=== PATIENT | male | born 1935 ===

== ENCOUNTER 2021-10-16 07:32 | Inpatient (IN) ==
[2021-10-16] MEDS ORDERED: SODIUM CHLORIDE 0.9% 1,000 ML IV STA (07:51)
[2021-10-16] MEDS ORDERED: SODIUM CHLORIDE 0.9% 2,750 ML IV ONE (07:53)
[2021-10-16] MEDS ORDERED: ACETAMINOPHEN 500 MG TABLET PO STA (07:53)
[2021-10-16] MEDS ORDERED: ACETAMINOPHEN 500 MG TABLET ONE (07:53)
[2021-10-16 08:01] LABS: Basophils % 0.2 % (0.0-0.8); Eosinophils # 0.1 10*3/uL (0.0-0.87); Eosinophils % 0.7 % (0.00-10.9); Hematocrit 34.1 VOL% (42.0-52.0); Hemoglobin 10.6 GM/DL (14.0-18.0); Immature Granulocytes % 0.6 %; Immature Granulocytes Absolute 0.07 #; Lymphocytes # 1.2 10*3/uL (1.4-4.0); Mean Corpuscular HGB Conc 31.1 GM/DL (32-36); Mean Corpuscular Volume 91.4 FL (87-102); Mean Platelet Volume 9.3 FL (9.6-12.0); Monocytes # 0.6 10*3/uL (0.11-0.8); Neutrophils % 83.5 % (38.7-73.9); Platelet Count 221 T/CUMM (130-400); Red Blood Count 3.73 MC/CUMM (3.8-5.5); Red Cell Distribution Width 14.6 % (9.3-17.3); White Blood Count 12.1 T/CUMM (4-12)
[2021-10-16 08:10] LABS: Bilirubin,Urine Negative (Negative); Blood, Urine Trace mg/dL (Negative); Glucose,Urine (UA) Negative (Negative); INR 1.1; Ketones,Urine Negative (Negative); Nitrite,Urine Negative (Negative); PT Patient Result 11.6 SECS (10.5-12.0); Partial Thromboplastin Time 24.2 SECS (23.7-32.9); Protein,Urine Negative (Negative); RBC,Urine 5 /HPF (0-4); Urine Appearance Clear (Clear); Urine Color Yellow (Yellow); Urine Urobilinogen 0.2 eU/dL (<2.0)
[2021-10-16 08:15] LABS: Albumin 3.3 G/DL (3.4-5.0); Bilirubin,Total 0.6 MG/DL (0.20-1.00); Calcium 8.8 MG/DL (8.5-10.1); Total Protein 6.6 G/DL (6.4-8.2)
[2021-10-16 08:21] LABS: Barbiturates Screen,Urine Negative (Negative); Benzodiazepines Screen,Urine Negative (Negative); Cannabinoid Screen,Urine Negative (Negative); Opiate Screen,Urine Positive (Negative); Phencyclidine Screen,Urine Negative (Negative)
[2021-10-16] MEDS ORDERED: PIPERACILLIN/TAZOBACTAM 3,375 MG in SODIUM CHLORIDE 0.9% 100 ML IV STA (10:01)
[2021-10-16] MEDS ORDERED: ACETAMINOPHEN 325 MG TABLET PO PRN (11:45)
[2021-10-16] MEDS ORDERED: GLUCAGON 1 MG VIAL IM PRN (11:45)
[2021-10-16] MEDS ORDERED: ONDANSETRON 4 MG/2 ML VIAL IV PRN (11:45)
[2021-10-16] MEDS ORDERED: DEXTROSE 10% 250 ML BAG IV PRN (11:51)
[2021-10-16] MEDS: cefTRIAXone 1,000 MG in SODIUM CHLORIDE 0.9% 100 ML IV SCH (12:04)
[2021-10-16] MEDS ORDERED: AZITHROMYCIN INJ 500 MG in SODIUM CHLORIDE 0.9% 250 ML IV SCH (12:30)
[2021-10-16] MEDS: DOXYCYCLINE HYCLATE INJ 100 MG in SODIUM CHLORIDE 0.9% 100 ML IV SCH (12:57)
[2021-10-16] MEDS: MORPHINE ER 30 MG TABLET PO SCH (22:30)
[2021-10-16] MEDS: MECLIZINE 25 MG TABLET PO SCH (22:30)
[2021-10-16] MEDS: TAMSULOSIN 0.4 MG CAPSULE PO SCH (22:30)
[2021-10-16] MEDS: APIXABAN 5 MG TABLET PO SCH (22:30)
[2021-10-16] MEDS: FLECAINIDE 100 MG TABLET PO SCH (22:30)
[2021-10-16] MEDS: AMITRIPTYLINE 50 MG TABLET PO SCH (22:31)
[2021-10-16] MEDS: DONEPEZIL 10 MG TABLET PO SCH (22:31)
[2021-10-16] MEDS: PREGABALIN 50 MG CAPSULE PO SCH (22:31)
[2021-10-16] MEDS: ZALEPLON 5 MG CAPSULE PO SCH (22:35)
[2021-10-16] MEDS: ALBUTEROL 2.5 MG/3 ML NEB RESP TX SCH (23:33)
[2021-10-17] MEDS: DOXYCYCLINE HYCLATE INJ 100 MG in SODIUM CHLORIDE 0.9% 100 ML IV SCH ×3 (00:08→20:38)
[2021-10-17 05:12] LABS: Basophils % 0.2 % (0.0-0.8); Eosinophils # 0.3 10*3/uL (0.0-0.87); Eosinophils % 3.6 % (0.00-10.9); Hematocrit 29.3 VOL% (42.0-52.0); Immature Granulocytes % 0.6 %; Immature Granulocytes Absolute 0.05 #; Lymphocytes # 1.6 10*3/uL (1.4-4.0); Lymphocytes % 17.5 % (21.2-54.2); Mean Corpuscular HGB Conc 30.7 GM/DL (32-36); Mean Corpuscular Volume 92.7 FL (87-102); Mean Platelet Volume 9.8 FL (9.6-12.0); Monocytes # 0.8 10*3/uL (0.11-0.8); Monocytes % 8.5 % (1.7-12.7); Neutrophils % 69.6 % (38.7-73.9); Platelet Count 190 T/CUMM (130-400); Red Blood Count 3.16 MC/CUMM (3.8-5.5); Red Cell Distribution Width 14.6 % (9.3-17.3); White Blood Count 9.1 T/CUMM (4-12)
[2021-10-17 05:29] LABS: Calcium 8.4 MG/DL (8.5-10.1); Osmolality,Calculated 281.4 MOS/KG (273-304); Potassium 4.3 MMOL/L (3.5-5.1)
[2021-10-17] MEDS: ALBUTEROL 2.5 MG/3 ML NEB RESP TX SCH ×2 (07:30→19:40)
[2021-10-17] MEDS: PREGABALIN 50 MG CAPSULE PO SCH ×2 (10:16→20:28)
[2021-10-17] MEDS: FLECAINIDE 100 MG TABLET PO SCH ×2 (10:16→20:30)
[2021-10-17] MEDS: PANTOPRAZOLE 40 MG TABLET PO SCH (10:16)
[2021-10-17] MEDS: APIXABAN 5 MG TABLET PO SCH ×2 (10:17→20:29)
[2021-10-17] MEDS: TAMSULOSIN 0.4 MG CAPSULE PO SCH ×2 (10:17→20:30)
[2021-10-17] MEDS: MORPHINE ER 30 MG TABLET PO SCH ×2 (10:17→20:29)
[2021-10-17] MEDS: MONTELUKAST 10 MG TABLET PO SCH (10:17)
[2021-10-17] MEDS: MECLIZINE 25 MG TABLET PO SCH ×2 (10:17→20:28)
[2021-10-17] MEDS: amLODIPine 5 MG TABLET PO SCH (10:17)
[2021-10-17] MEDS: MEMANTINE 5 MG TABLET PO SCH (10:18)
[2021-10-17] MEDS: cefTRIAXone 1,000 MG in SODIUM CHLORIDE 0.9% 100 ML IV SCH (10:22)
[2021-10-17] MEDS: PROPRANOLOL 20 MG TABLET PO SCH (10:35)
[2021-10-17] MEDS: DONEPEZIL 10 MG TABLET PO SCH (20:27)
[2021-10-17] MEDS: ZALEPLON 5 MG CAPSULE PO SCH (20:28)
[2021-10-17] MEDS: AMITRIPTYLINE 50 MG TABLET PO SCH (20:30)
[2021-10-18 05:37] LABS: Basophils % 0.3 % (0.0-0.8); Eosinophils # 0.3 10*3/uL (0.0-0.87); Eosinophils % 4.3 % (0.00-10.9); Hematocrit 28.9 VOL% (42.0-52.0); Hemoglobin 8.9 GM/DL (14.0-18.0); Immature Granulocytes % 0.6 %; Immature Granulocytes Absolute 0.04 #; Lymphocytes # 1.5 10*3/uL (1.4-4.0); Lymphocytes % 21.1 % (21.2-54.2); Mean Corpuscular HGB Conc 30.8 GM/DL (32-36); Mean Corpuscular Volume 92.6 FL (87-102); Mean Platelet Volume 9.5 FL (9.6-12.0); Monocytes # 0.7 10*3/uL (0.11-0.8); Monocytes % 9.8 % (1.7-12.7); Neutrophils % 63.9 % (38.7-73.9); Platelet Count 184 T/CUMM (130-400); Red Blood Count 3.12 MC/CUMM (3.8-5.5); Red Cell Distribution Width 14.4 % (9.3-17.3)
[2021-10-18 05:56] LABS: Calcium 8.3 MG/DL (8.5-10.1); Osmolality,Calculated 276.7 MOS/KG (273-304)
[2021-10-18] MEDS: ALBUTEROL 2.5 MG/3 ML NEB RESP TX SCH (07:24)
[2021-10-18] MEDS ORDERED: DOXYCYCLINE HYCLATE 100 MG CAPSULE PO SCH (09:00)
[2021-10-18] MEDS: MEMANTINE 5 MG TABLET PO SCH (09:09)
[2021-10-18] MEDS: APIXABAN 5 MG TABLET PO SCH (09:09)
[2021-10-18] MEDS: PREGABALIN 50 MG CAPSULE PO SCH (09:11)
[2021-10-18] MEDS: MECLIZINE 25 MG TABLET PO SCH (09:11)
[2021-10-18] MEDS: PANTOPRAZOLE 40 MG TABLET PO SCH (09:11)
[2021-10-18] MEDS: MORPHINE ER 30 MG TABLET PO SCH (09:11)
[2021-10-18] MEDS: TAMSULOSIN 0.4 MG CAPSULE PO SCH (09:12)
[2021-10-18] MEDS: amLODIPine 5 MG TABLET PO SCH (09:12)
[2021-10-18] MEDS: FLECAINIDE 100 MG TABLET PO SCH (09:12)
[2021-10-18] MEDS: MONTELUKAST 10 MG TABLET PO SCH (09:12)
[2021-10-18] MEDS: PROPRANOLOL 20 MG TABLET PO SCH (09:14)
[2021-10-18] MEDS: cefTRIAXone 1,000 MG in SODIUM CHLORIDE 0.9% 100 ML IV SCH (09:18)
[2021-10-18 11:56] LABS: % Iron Saturation 7.5 % (18-50); Ferritin 96.2 ng/mL (26-388)
[2021-10-18] MEDS ORDERED: DOCUSATE SODIUM 100 MG CAPSULE PO SCH (15:00)
[2021-10-18 15:58] VITALS: BP 141/56
[2021-10-19] MEDS ORDERED: FERROUS SULFATE 325 MG TABLET PO SCH (09:00)
== END 2021-10-18 17:54 | disposition home health service (06) | DRG 193 ==
LOC: N.ED 07:32 → N.EDINP 11:48 → SUATTDRO 11:48 → N.EDINP 14:07 → N.5E 14:15
PROVIDERS: ADMIT Internal Medicine Geriatric Medicine; ATTEND Internal Medicine

== ENCOUNTER 2022-04-12 20:13 | Inpatient (IN) ==
[2022-04-12] MEDS ORDERED: ONDANSETRON 4 MG/2 ML VIAL IV STA (22:18)
[2022-04-12] MEDS ORDERED: MORPHINE 2 MG/1 ML SYRINGE IV STA (22:18)
[2022-04-12 22:40] LABS: Basophils % 0.2 % (0.0-0.8); Hematocrit 40.9 VOL% (42.0-52.0); Hemoglobin 13.1 GM/DL (14.0-18.0); Immature Granulocytes % 0.4 %; Immature Granulocytes Absolute 0.04 #; Lymphocytes # 0.7 10*3/uL (1.4-4.0); Lymphocytes % 6.5 % (21.2-54.2); Mean Corpuscular Volume 93.4 FL (87-102); Mean Platelet Volume 9.7 FL (9.6-12.0); Monocytes # 0.7 10*3/uL (0.11-0.8); Neutrophils % 86.9 % (38.7-73.9); Platelet Count 230 T/CUMM (130-400); Red Blood Count 4.38 MC/CUMM (3.8-5.5); Red Cell Distribution Width 12.2 % (9.3-17.3); White Blood Count 10.9 T/CUMM (4-12)
[2022-04-12 23:00] LABS: Albumin 3.7 G/DL (3.4-5.0); Bilirubin,Total 0.5 MG/DL (0.20-1.00); Calcium 9.3 MG/DL (8.5-10.1); Osmolality,Calculated 284.5 MOS/KG (273-304); Total Protein 7.5 G/DL (6.4-8.2)
[2022-04-13 00:57] LABS: Urine Appearance Clear (Clear); Urine Color Yellow (Yellow)
[2022-04-13 00:58] LABS: Bilirubin,Urine Negative (Negative); Blood, Urine Negative (Negative); Glucose,Urine (UA) 100 mg/dL (Negative); Ketones,Urine Negative (Negative); Nitrite,Urine Negative (Negative); Protein,Urine Trace mg/dL (Negative); Urine Urobilinogen 0.2 eU/dL (<2.0)
[2022-04-13 01:00] LABS: Mucus,Urine Occasional /LPF (Occasional); RBC,Urine 8 /HPF (0-4); Squamous Epithelial Cell,Urine Occasional /HPF (0-10)
[2022-04-13] MEDS ORDERED: KETOROLAC 30 MG/1 ML VIAL IV STA (01:10)
[2022-04-13] MEDS ORDERED: ONDANSETRON 4 MG/2 ML VIAL IV PRN ×2 (02:00→07:29)
[2022-04-13] MEDS ORDERED: ACETAMINOPHEN 325 MG TABLET PO PRN (02:00)
[2022-04-13] MEDS ORDERED: SIMETHICONE CHEW 125 MG TABLET PO PRN (02:00)
[2022-04-13] MEDS: SODIUM CHLORIDE 0.9% 1,000 ML IV SCH ×3 (02:05→15:49)
[2022-04-13] MEDS ORDERED: MORPHINE 2 MG/1 ML SYRINGE IV PRN ×2 (02:55→02:59)
[2022-04-13] MEDS ORDERED: FUROSEMIDE 20 MG TABLET PO PRN (02:56)
[2022-04-13 05:13] LABS: Basophils % 0.1 % (0.0-0.8); Hematocrit 36.6 VOL% (42.0-52.0); Hemoglobin 11.9 GM/DL (14.0-18.0); Immature Granulocytes % 0.6 %; Immature Granulocytes Absolute 0.06 #; Lymphocytes # 1.1 10*3/uL (1.4-4.0); Lymphocytes % 10.6 % (21.2-54.2); Mean Corpuscular HGB Conc 32.5 GM/DL (32-36); Mean Corpuscular Volume 93.4 FL (87-102); Mean Platelet Volume 9.2 FL (9.6-12.0); Monocytes # 0.8 10*3/uL (0.11-0.8); Monocytes % 7.4 % (1.7-12.7); Neutrophils % 81.3 % (38.7-73.9); Platelet Count 197 T/CUMM (130-400); Red Blood Count 3.92 MC/CUMM (3.8-5.5); Red Cell Distribution Width 12.4 % (9.3-17.3); White Blood Count 10.5 T/CUMM (4-12)
[2022-04-13 05:15] LABS: Calcium 8.8 MG/DL (8.5-10.1); Osmolality,Calculated 283.4 MOS/KG (273-304); Potassium 4.9 MMOL/L (3.5-5.1)
[2022-04-13 05:24] LABS: PT Patient Result 11.4 SECS (10.1-12.1); Partial Thromboplastin Time 30.7 SECS (23.7-32.9)
[2022-04-13] MEDS ORDERED: cefTRIAXone 1,000 MG in SODIUM CHLORIDE 0.9% 100 ML IV ONE (07:14)
[2022-04-13] MEDS ORDERED: HYDROmorphone 1 MG/1 ML SYRINGE IV PRN (07:29)
[2022-04-13] MEDS ORDERED: MEPERIDINE 25 MG/1 ML VIAL IV PRN (07:29)
[2022-04-13] MEDS ORDERED: PROMETHAZINE INJ 25 MG in SODIUM CHLORIDE 0.9% 50 ML IV PRN (07:29)
[2022-04-13] MEDS ORDERED: diphenhydrAMINE 50 MG/1 ML VIAL IV PRN (07:29)
[2022-04-13] MEDS ORDERED: fentaNYL 100 MCG/2 ML VIAL ONE (07:44)
[2022-04-13] MEDS ORDERED: propofoL 200 MG/20 ML VIAL IV ONE (07:44)
[2022-04-13] MEDS ORDERED: KETAMINE 500 MG/10 ML VIAL ONE (07:44)
[2022-04-13] MEDS ORDERED: LIDOCAINE 2% 5 ML VIAL ONE (07:44)
[2022-04-13] MEDS: ALBUTEROL 2.5 MG/3 ML NEB RESP TX SCH ×2 (08:00→19:42)
[2022-04-13] MEDS ORDERED: MIDAZOLAM 2 MG/2 ML VIAL ONE (08:32)
[2022-04-13] MEDS: MECLIZINE 25 MG TABLET PO SCH ×2 (10:20→20:59)
[2022-04-13] MEDS: DOCUSATE SODIUM 100 MG CAPSULE PO SCH ×2 (10:26→20:59)
[2022-04-13] MEDS: amLODIPine 5 MG TABLET PO SCH (10:26)
[2022-04-13] MEDS: MEMANTINE 5 MG TABLET PO SCH (10:27)
[2022-04-13] MEDS: FLECAINIDE 50 MG TABLET PO SCH ×2 (10:27→21:01)
[2022-04-13] MEDS: PREGABALIN 50 MG CAPSULE PO SCH ×2 (10:27→21:00)
[2022-04-13] MEDS: PANTOPRAZOLE 40 MG TABLET PO SCH (10:27)
[2022-04-13] MEDS: MONTELUKAST 10 MG TABLET PO SCH (10:27)
[2022-04-13] MEDS: MORPHINE ER 15 MG TABLET PO SCH ×2 (10:27→21:01)
[2022-04-13] MEDS: TAMSULOSIN 0.4 MG CAPSULE PO SCH ×2 (10:27→21:00)
[2022-04-13] MEDS: DONEPEZIL 10 MG TABLET PO SCH (20:59)
[2022-04-13] MEDS: AMITRIPTYLINE 50 MG TABLET PO SCH (21:00)
[2022-04-13] MEDS: ZALEPLON 5 MG CAPSULE PO SCH (21:01)
[2022-04-14] MEDS: SODIUM CHLORIDE 0.9% 1,000 ML IV SCH ×2 (04:25→17:50)
[2022-04-14] MEDS: ALBUTEROL 2.5 MG/3 ML NEB RESP TX SCH ×2 (07:08→19:50)
[2022-04-14] MEDS: MECLIZINE 25 MG TABLET PO SCH ×2 (08:54→21:32)
[2022-04-14] MEDS: PREGABALIN 50 MG CAPSULE PO SCH ×2 (08:54→21:32)
[2022-04-14] MEDS: amLODIPine 5 MG TABLET PO SCH (08:54)
[2022-04-14] MEDS: DOCUSATE SODIUM 100 MG CAPSULE PO SCH ×2 (08:54→21:31)
[2022-04-14] MEDS: TAMSULOSIN 0.4 MG CAPSULE PO SCH ×2 (08:55→21:32)
[2022-04-14] MEDS: MORPHINE ER 15 MG TABLET PO SCH ×2 (08:55→21:33)
[2022-04-14] MEDS: PANTOPRAZOLE 40 MG TABLET PO SCH (08:55)
[2022-04-14] MEDS: FLECAINIDE 50 MG TABLET PO SCH ×2 (08:55→21:33)
[2022-04-14] MEDS: MONTELUKAST 10 MG TABLET PO SCH (08:55)
[2022-04-14] MEDS: MEMANTINE 5 MG TABLET PO SCH (08:55)
[2022-04-14 10:13] LABS: Basophils % 0.3 % (0.0-0.8); Eosinophils # 0.2 10*3/uL (0.0-0.87); Eosinophils % 2.4 % (0.00-10.9); Hemoglobin 10.8 GM/DL (14.0-18.0); Immature Granulocytes % 0.3 %; Immature Granulocytes Absolute 0.02 #; Lymphocytes # 1.4 10*3/uL (1.4-4.0); Lymphocytes % 18.9 % (21.2-54.2); Mean Corpuscular HGB Conc 30.9 GM/DL (32-36); Mean Platelet Volume 9.2 FL (9.6-12.0); Monocytes # 0.6 10*3/uL (0.11-0.8); Monocytes % 8.2 % (1.7-12.7); Neutrophils % 69.9 % (38.7-73.9); Platelet Count 171 T/CUMM (130-400); Red Blood Count 3.61 MC/CUMM (3.8-5.5); Red Cell Distribution Width 12.6 % (9.3-17.3); White Blood Count 7.4 T/CUMM (4-12)
[2022-04-14 10:42] LABS: Calcium 8.3 MG/DL (8.5-10.1); Potassium 4.3 MMOL/L (3.5-5.1)
[2022-04-14] MEDS ORDERED: GLUCAGON 1 MG VIAL IM PRN (12:57)
[2022-04-14] MEDS ORDERED: DEXTROSE 10% 250 ML BAG IV PRN (13:04)
[2022-04-14 15:46] LABS: % Iron Saturation 5.7 % (18-50); Ferritin 57.1 ng/mL (26-388)
[2022-04-14 15:49] LABS: Folate > 24.00 NG/ML (5.38-24.0); Vitamin B12 256 PG/ML (211-911)
[2022-04-14] MEDS: INSULIN LISPRO 100 UNIT/ML SUBCUT SCH ×2 (16:37→21:34)
[2022-04-14] MEDS: AMITRIPTYLINE 50 MG TABLET PO SCH (21:32)
[2022-04-14] MEDS: DONEPEZIL 10 MG TABLET PO SCH (21:32)
[2022-04-14] MEDS: ZALEPLON 5 MG CAPSULE PO SCH (21:33)
[2022-04-15 06:29] LABS: Basophils % 0.5 % (0.0-0.8); Eosinophils # 0.2 10*3/uL (0.0-0.87); Eosinophils % 3.8 % (0.00-10.9); Hematocrit 32.1 VOL% (42.0-52.0); Immature Granulocytes % 0.4 %; Immature Granulocytes Absolute 0.02 #; Lymphocytes # 1.5 10*3/uL (1.4-4.0); Lymphocytes % 27.7 % (21.2-54.2); Mean Corpuscular HGB Conc 31.2 GM/DL (32-36); Mean Corpuscular Volume 97.3 FL (87-102); Mean Platelet Volume 9.5 FL (9.6-12.0); Monocytes # 0.7 10*3/uL (0.11-0.8); Monocytes % 11.9 % (1.7-12.7); Neutrophils % 55.7 % (38.7-73.9); Platelet Count 162 T/CUMM (130-400); Red Cell Distribution Width 12.3 % (9.3-17.3); White Blood Count 5.5 T/CUMM (4-12)
[2022-04-15] MEDS: ALBUTEROL 2.5 MG/3 ML NEB RESP TX SCH ×2 (06:48→19:15)
[2022-04-15 06:52] LABS: Calcium 8.1 MG/DL (8.5-10.1)
[2022-04-15] MEDS: INSULIN LISPRO 100 UNIT/ML SUBCUT SCH ×4 (10:08→21:14)
[2022-04-15] MEDS: PREGABALIN 50 MG CAPSULE PO SCH ×2 (10:24→21:14)
[2022-04-15] MEDS: MORPHINE ER 15 MG TABLET PO SCH ×2 (10:24→21:13)
[2022-04-15] MEDS: DOCUSATE SODIUM 100 MG CAPSULE PO SCH ×2 (10:24→21:13)
[2022-04-15] MEDS: MONTELUKAST 10 MG TABLET PO SCH (10:24)
[2022-04-15] MEDS: PANTOPRAZOLE 40 MG TABLET PO SCH (10:24)
[2022-04-15] MEDS: MEMANTINE 5 MG TABLET PO SCH (10:24)
[2022-04-15] MEDS: amLODIPine 5 MG TABLET PO SCH (10:25)
[2022-04-15] MEDS: MECLIZINE 25 MG TABLET PO SCH ×2 (10:25→21:11)
[2022-04-15] MEDS: TAMSULOSIN 0.4 MG CAPSULE PO SCH ×2 (10:25→21:12)
[2022-04-15] MEDS: FLECAINIDE 50 MG TABLET PO SCH ×2 (10:25→21:12)
[2022-04-15] MEDS: SODIUM CHLORIDE 0.9% 1,000 ML IV SCH (14:51)
[2022-04-15] MEDS ORDERED: FAMOTIDINE 20 MG TABLET PO ONE (16:29)
[2022-04-15] MEDS: ZALEPLON 5 MG CAPSULE PO SCH (21:12)
[2022-04-15] MEDS: AMITRIPTYLINE 50 MG TABLET PO SCH (21:13)
[2022-04-15] MEDS: DONEPEZIL 10 MG TABLET PO SCH (21:13)
[2022-04-16 05:42] LABS: Basophils % 0.5 % (0.0-0.8); Eosinophils # 0.2 10*3/uL (0.0-0.87); Eosinophils % 3.3 % (0.00-10.9); Hematocrit 31.6 VOL% (42.0-52.0); Immature Granulocytes % 0.3 %; Immature Granulocytes Absolute 0.02 #; Lymphocytes # 1.3 10*3/uL (1.4-4.0); Lymphocytes % 20.2 % (21.2-54.2); Mean Corpuscular HGB Conc 31.6 GM/DL (32-36); Mean Corpuscular Volume 94.3 FL (87-102); Mean Platelet Volume 9.3 FL (9.6-12.0); Monocytes # 0.6 10*3/uL (0.11-0.8); Monocytes % 9.2 % (1.7-12.7); Neutrophils % 66.5 % (38.7-73.9); Platelet Count 172 T/CUMM (130-400); Red Blood Count 3.35 MC/CUMM (3.8-5.5); White Blood Count 6.4 T/CUMM (4-12)
[2022-04-16] MEDS: SODIUM CHLORIDE 0.9% 1,000 ML IV SCH (05:59)
[2022-04-16] MEDS ORDERED: cefTRIAXone 1,000 MG in SODIUM CHLORIDE 0.9% 100 ML IV ONE (06:00)
[2022-04-16 06:09] LABS: Calcium 8.5 MG/DL (8.5-10.1); Osmolality,Calculated 280.4 MOS/KG (273-304); Potassium 4.1 MMOL/L (3.5-5.1)
[2022-04-16] MEDS: INSULIN LISPRO 100 UNIT/ML SUBCUT SCH ×4 (07:35→21:25)
[2022-04-16] MEDS: ALBUTEROL 2.5 MG/3 ML NEB RESP TX SCH ×2 (08:25→19:21)
[2022-04-16] MEDS: MECLIZINE 25 MG TABLET PO SCH ×2 (09:26→21:24)
[2022-04-16] MEDS: PANTOPRAZOLE 40 MG TABLET PO SCH (09:27)
[2022-04-16] MEDS: PREGABALIN 50 MG CAPSULE PO SCH ×2 (09:27→21:21)
[2022-04-16] MEDS: DOCUSATE SODIUM 100 MG CAPSULE PO SCH ×2 (09:27→21:23)
[2022-04-16] MEDS: MONTELUKAST 10 MG TABLET PO SCH (09:27)
[2022-04-16] MEDS: TAMSULOSIN 0.4 MG CAPSULE PO SCH ×2 (09:27→21:25)
[2022-04-16] MEDS: FLECAINIDE 50 MG TABLET PO SCH ×2 (09:30→21:23)
[2022-04-16] MEDS: amLODIPine 5 MG TABLET PO SCH (09:30)
[2022-04-16] MEDS: MEMANTINE 5 MG TABLET PO SCH (09:32)
[2022-04-16] MEDS: MORPHINE ER 15 MG TABLET PO SCH ×2 (09:32→21:21)
[2022-04-16] MEDS ORDERED: SEVOFLURANE 1 UNIT/15 MINUTE INH ONE (11:21)
[2022-04-16] MEDS ORDERED: fentaNYL 100 MCG/2 ML VIAL ONE (11:21)
[2022-04-16] MEDS ORDERED: ONDANSETRON 4 MG/2 ML VIAL ONE (11:21)
[2022-04-16] MEDS ORDERED: propofoL 200 MG/20 ML VIAL IV ONE (11:21)
[2022-04-16] MEDS ORDERED: LIDOCAINE 2% 5 ML VIAL ONE (11:21)
[2022-04-16] MEDS ORDERED: NEOMYCIN/POLYMYXIN IRRIG SOLN 1 ML AMP BLADDERIRR ONE (11:38)
[2022-04-16] MEDS ORDERED: ePHEDrine 50 MG/ML VIAL ONE (11:47)
[2022-04-16] MEDS: ZALEPLON 5 MG CAPSULE PO SCH (21:22)
[2022-04-16] MEDS: DONEPEZIL 10 MG TABLET PO SCH (21:23)
[2022-04-16] MEDS: AMITRIPTYLINE 50 MG TABLET PO SCH (21:24)
[2022-04-17] MEDS: SODIUM CHLORIDE 0.9% 1,000 ML IV SCH (04:11)
[2022-04-17 04:55] LABS: Basophils % 0.2 % (0.0-0.8); Eosinophils # 0.2 10*3/uL (0.0-0.87); Eosinophils % 2.4 % (0.00-10.9); Hematocrit 31.9 VOL% (42.0-52.0); Hemoglobin 10.4 GM/DL (14.0-18.0); Immature Granulocytes % 0.3 %; Immature Granulocytes Absolute 0.02 #; Lymphocytes # 1.2 10*3/uL (1.4-4.0); Lymphocytes % 18.8 % (21.2-54.2); Mean Corpuscular HGB Conc 32.6 GM/DL (32-36); Mean Platelet Volume 9.3 FL (9.6-12.0); Monocytes # 0.7 10*3/uL (0.11-0.8); Monocytes % 10.6 % (1.7-12.7); Neutrophils % 67.7 % (38.7-73.9); Platelet Count 174 T/CUMM (130-400); Red Blood Count 3.43 MC/CUMM (3.8-5.5); White Blood Count 6.2 T/CUMM (4-12)
[2022-04-17 05:29] LABS: Calcium 8.4 MG/DL (8.5-10.1); Osmolality,Calculated 283.1 MOS/KG (273-304); Potassium 3.8 MMOL/L (3.5-5.1)
[2022-04-17] MEDS: ALBUTEROL 2.5 MG/3 ML NEB RESP TX SCH (07:34)
[2022-04-17] MEDS: INSULIN LISPRO 100 UNIT/ML SUBCUT SCH ×2 (08:07→11:31)
[2022-04-17] MEDS: PANTOPRAZOLE 40 MG TABLET PO SCH (08:13)
[2022-04-17] MEDS: DOCUSATE SODIUM 100 MG CAPSULE PO SCH (08:13)
[2022-04-17] MEDS: MONTELUKAST 10 MG TABLET PO SCH (08:13)
[2022-04-17] MEDS: MEMANTINE 5 MG TABLET PO SCH (08:13)
[2022-04-17] MEDS: amLODIPine 5 MG TABLET PO SCH (08:13)
[2022-04-17] MEDS: TAMSULOSIN 0.4 MG CAPSULE PO SCH (08:14)
[2022-04-17] MEDS: FLECAINIDE 50 MG TABLET PO SCH (08:14)
[2022-04-17] MEDS: MECLIZINE 25 MG TABLET PO SCH (08:14)
[2022-04-17] MEDS: PREGABALIN 50 MG CAPSULE PO SCH (08:14)
[2022-04-17] MEDS: MORPHINE ER 15 MG TABLET PO SCH (08:14)
[2022-04-17] MEDS ORDERED: FINASTERIDE 5 MG TABLET PO SCH (09:00)
[2022-04-17 11:21] VITALS: BP 152/63
== END 2022-04-17 12:45 | disposition home or self-care (01) | DRG 660 ==
LOC: N.ED 20:13 → N.EDINP 04-13 02:00 → SUATTDRO 04-13 02:00 → N.EDINP 04-13 02:50 → N.3E 04-13 03:28
PROVIDERS: ADMIT Internal Medicine; ATTEND Internal Medicine Geriatric Medicine